=== PATIENT | female | born 1970 | race Caucasian/White ===

== ENCOUNTER 2017-05-17 10:59 | Day surgery (SDC) | payer OTHER ==
--- NOTE | 2017-05-17 08:35 | HP ---
DATE OF SURGERY: 05/17/2017 HISTORY OF PRESENT ILLNESS: The patient is a 46 year-old with left flank subcutaneous mass over the past month is tender and question if increasing in size. Question whether she had lipoma. It is increasingly symptomatic, increasing in size and discomfort. I feel she would benefit from excisional biopsy. PAST MEDICAL HISTORY: Diabetes. PAST SURGICAL HISTORY: Tonsillectomy, tubal in the past. She had a thigh tumor removed. She also had a neck abscess in the past. MEDICATIONS: Actos, Albuterol for chronic obstructive pulmonary disease and asthma as well as Glipizide. ALLERGIES: LORTAB. FAMILY HISTORY: Diabetes, cancer. SOCIAL HISTORY: No smoking or alcohol abuse. REVIEW OF SYSTEMS: Twelve systems reviewed. No chest pain or palpitations other systems negative or noncontributory as above and per preadmission questionnaire. PHYSICAL EXAMINATION: GENERAL: No acute distress. HEENT: Sclerae nonicteric. NECK: No JVD. CHEST: Equal excursion, nonlabored breathing. CVS: Regular rate and rhythm. ABDOMEN: On left flank area there is a subcutaneous mass question lipoma versus other etiology. Otherwise abdomen is soft. No peritoneal signs. EXTREMITIES: No significant edema. NEURO: Alert, oriented, moving extremities symmetrically. No gross motor deficits noted. IMPRESSION: Enlarging symptomatic tender left flank subcutaneous mass whether lipoma or other etiology. I feel she would benefit from excisional biopsy. Risks and benefits explained in detail including but not limited to bleeding or infection. Risk of hematoma or seroma formation, risk of wound dehiscence possibly requiring packing, general risk of anesthesia or sedation, risk of aches or pains, possibility of what we excise likely will not recur but she could get similar nodule, lipoma or mass adjacent to or elsewhere on her body. She understands and agrees to the planned procedure, will proceed with excisional biopsy of left flank mass, subcutaneous mass or lipoma as an outpatient.
[~2017-05-17 10:59] MED LIST: Lactated Ringers 1,000 ML IV ONE; Lactated Ringers 1,000 ML IV SCH; Sensorcaine 0.25% 10 ML ONE; XYLOCAINE 1% HCL 20 ML MDV ONE
[2017-05-17] MEDS ORDERED: SUBLIMAZE 100 MCG/2 ML IV ONE (11:00)
[2017-05-17] MEDS ORDERED: DIPRIVAN 200 MG/20 ML IV ONE (11:00)
[2017-05-17] MEDS ORDERED: Lactated Ringers 1,000 ML IV ONE (11:11)
[2017-05-17 11:26] VITALS: O2SAT 97
[2017-05-17] MEDS ORDERED: CEFAZOLIN 2 GM-D5W BAG** 2 GM/50 ML ML IV SCH (11:30)
[2017-05-17 14:51] VITALS: BP 110/76; PULSE 68
--- NOTE | 2017-05-17 15:26 | OP ---
SURGERY DATE/TIME: 05/17/2017 1302 PREOPERATIVE DIAGNOSIS: Increasingly symptomatic enlarging left flank subcutaneous mass or lipoma. POSTOPERATIVE DIAGNOSIS: Increasingly symptomatic enlarging left flank subcutaneous mass or lipoma. PROCEDURE: Excisional biopsy of left flank lipomatous density (6 cm). SURGEON: Dr. Lux Christianson. ANESTHESIA: MAC with 1% lidocaine local. ESTIMATED BLOOD LOSS: Minimal. INDICATIONS: As noted above. Risks and benefits explained in detail and not limited to and consent obtained. DESCRIPTION OF PROCEDURE AND FINDINGS: The patient is taken to the operating room. MAC anesthesia introduced. In lateral position with appropriate padding per anesthesia and OR staff, the flank was prepped and draped in usual sterile fashion. The site had been confirmed with the patient in the preoperative holding area. Prepped and draped in usual sterile fashion. 1% lidocaine local was infiltrated in field pattern around the area. She did require additional MAC anesthesia during this. A transverse incision directly overlying the area. Dissection carried down through normal appearing subcutaneous tissue to a denser lipomatous density coming up a little bit denser underneath the subcutaneous tissue this was slowly freed from the underlying fascia. It measured about 6 cm with its margins and passed off for pathology. The wound is irrigated out. Good hemostasis noted. It was then closed in layers with deep superficial subcu closed with 3-0 Vicryl down to the level of the fascia. The skin closed with 4-0 Vicryl. Steri-Strips and sterile dressing applied. The patient tolerated the procedure well. There were no immediate complications. Findings discussed with the family out in the waiting area.
== END 2017-05-17 15:01 | disposition home or self-care (01) ==
LOC: SDC 10:59
PROVIDERS: ATTEND Surgery
PROC: 0HB7XZZ Excision of Abdomen Skin, External Approach (ICD-10-PCS; principal; 2017-05-17)
DX: R22.2 Localized swelling, mass and lump, trunk (principal); R20.8 Other disturbances of skin sensation
CPT/HCPCS: 00400; J0690; J2704; J3010

== ENCOUNTER 2018-08-17 13:57 | Day surgery (SDC) | payer OTHER ==
[2018-08-17] MEDS ORDERED: Depo-Medrol 40 MG/ML IM ONE (13:58)
[2018-08-17] MEDS ORDERED: Marcaine 0.5% SDV 10 ML IJ ONE (13:58)
[2018-08-17] MEDS ORDERED: Xylocaine 1% Vial 30 ML PF IJ ONE (13:58)
[2018-08-17] MEDS ORDERED: TORAdol 30 mg Injection ONE (16:02)
--- NOTE | 2018-08-17 16:32 | XRAY ---
19 seconds fluoroscopy time in surgery for bilateral SI joint injections.
--- NOTE | 2018-08-17 16:34 | XRAY ---
Indication: Bilateral SI joint injection. Intraoperative fluoroscopy was provided for 19 seconds. 3 digital spot images submitted for interpretation demonstrates posterior needle tip projecting over inferior right SI joint. Correlate with intraoperative findings/report.
== END 2018-08-17 16:16 | disposition home or self-care (01) ==
LOC: SDC-PAIN 13:57
PROVIDERS: ATTEND Psychiatry & Neurology Pain Medicine
DX: M46.1 Sacroiliitis, not elsewhere classified (principal); E11.9 Type 2 diabetes mellitus without complications; M19.90 Unspecified osteoarthritis, unspecified site; J45.909 Unspecified asthma, uncomplicated; Z79.899 Other long term (current) drug therapy
CPT/HCPCS: 72202; 77002; J1030; J1885; J2001

== ENCOUNTER 2018-09-28 14:31 | Day surgery (SDC) | payer OTHER ==
[2018-09-28] MEDS ORDERED: Xylocaine 1% Vial 30 ML PF IJ ONE (14:32)
[2018-09-28] MEDS ORDERED: Marcaine 0.5% SDV 10 ML IJ ONE (14:32)
[2018-09-28] MEDS ORDERED: Depo-Medrol 40 MG/ML IM ONE (14:32)
--- NOTE | 2018-09-28 16:33 | XRAY ---
6 seconds fluoroscopy time in surgery for left greater trochanteric injection.
--- NOTE | 2018-09-28 16:33 | XRAY ---
11 seconds fluoroscopy time in surgery for right greater trochanteric injection.
--- NOTE | 2018-09-28 16:34 | XRAY ---
Indication: Left hip injection. Intraoperative fluoroscopy was provided for 6 seconds. Single digital spot image submitted for interpretation demonstrates needle tip just lateral to the left greater trochanter. Small amount of contrast injected for needle tip placement. Correlate with intraoperative findings/report.
--- NOTE | 2018-09-28 16:34 | XRAY ---
Indication: Right hip injection. Intraoperative fluoroscopy was provided for 11 seconds. Single digital spot image submitted for interpretation demonstrates needle tip just lateral to the right greater trochanter. Small amount of contrast injected for needle tip placement. Correlate with intraoperative findings/report.
== END 2018-09-28 16:12 | disposition home or self-care (01) ==
LOC: SDC-PAIN 14:31
PROVIDERS: ATTEND Psychiatry & Neurology Pain Medicine
DX: M70.61 Trochanteric bursitis, right hip (principal); M70.62 Trochanteric bursitis, left hip; Z79.899 Other long term (current) drug therapy; E11.9 Type 2 diabetes mellitus without complications; J45.909 Unspecified asthma, uncomplicated
CPT/HCPCS: 20610; 73501; 77002; 82962; 84703; J1030; J2001; Q9966